=== PATIENT | male | born 1955 | race Two or more races ===

== ENCOUNTER 2024-01-31 09:54 | Inpatient (IN) | payer OTHER ==
[~2024-01-31] VITALS: Ht 170.2 cm; Wt 81.2 kg
[2024-01-31] MEDS ORDERED: TAMSULOSIN HCL0.4 MG PO (10:39)
[2024-01-31] MEDS ORDERED: FINASTERIDE5 MG PO (10:39)
[2024-01-31] MEDS ORDERED: ENALAPRIL MALEA10 MG PO (10:39)
[2024-01-31] MEDS ORDERED: CIPROFLOXACIN IN 5 % DEXTROSE 400 MG/200 ML PIGGYBAG IV STA (11:59)
[2024-01-31] MEDS ORDERED: METRONIDAZOLE/SODIUM CHLORIDE 500 MG/100 ML PIGGYBACK IV STA (12:00)
[2024-01-31] MEDS ORDERED: 0.9 % SODIUM CHLORIDE 1,000 ML IV STA (12:01)
[2024-01-31] MEDS ORDERED: CIPROFLOXACIN IN 5 % DEXTROSE 400 MG/200 ML PIGGYBAG IV ONE (12:08)
[2024-01-31] MEDS ORDERED: METRONIDAZOLE/SODIUM CHLORIDE 500 MG/100 ML PIGGYBACK IV ONE (12:08)
[2024-01-31 12:34] LABS: HEMATOCRIT 46.2 % (39.0-48.0); HEMOGLOBIN 15.6 g/dL (13-16.00); MEAN CELL VOLUME 90.5 fL (80.0-100.00); MEAN CORPUSCULAR HEMOGLOBIN 30.5 pg (27.00-32.0); MEAN CORPUSCULAR HGB CONC 33.7 g/dl (32.0-36.0); PLATELET COUNT 405 K/uL (150-450); RED CELL DISTRIBUTION WIDTH 13.5 % (11.5-14.5)
[2024-01-31 12:51] LABS: CALCIUM 9.3 mg/dL (8.5-10.1); CREATININE SERUM 1.86 mg/dL (0.70-1.30); GFR 36.42; POTASSIUM 4.52 mEq/L (3.5-5.1)
[2024-01-31 13:49] LABS: URINE APPEARANCE Clear; URINE BILIRRUBIN Negative (NEGATIVE); URINE BLOOD Negative; URINE COLOR Yellow; URINE GLUCOSE Negative (NEGATIVE); URINE KETONE Negative (NEGATIVE); URINE LEUKOCYTE Trace; URINE NITRATE Negative; URINE PROTEIN Trace (NEGATIVE); URINE UROBILINOGEN 0.2 E.U./dl
[2024-01-31 13:53] LABS: URINE BACTERIA 29.3 uL (0.0-1933); URINE EPITHELIAL CELLS 6.8 uL (0.0-38.8); URINE RBC 13.9 uL (0.0-20.8); URINE WBC 17.4 uL (0.0-23.2)
[2024-01-31 13:56] LABS: URINE CAST 1.32 uL (0.0-1.40)
[2024-01-31] MEDS ORDERED: ACETAMINOPHEN 325 MG TABLET PO PRN (19:00)
[2024-01-31] MEDS ORDERED: 0.9 % SODIUM CHLORIDE 1,000 ML IV SCH (19:00)
[2024-01-31] MEDS ORDERED: PROMETHAZINE HCL 25 MG/ML AMPUL IM PRN (19:00)
[2024-01-31] MEDS ORDERED: MEPERIDINE HCL/PF 25 MG/ML VIAL IM PRN (19:00)
[2024-01-31] MEDS ORDERED: ONDANSETRON HCL 4 MG in 0.9 % SODIUM CHLORIDE 50 ML IV PRN (19:00)
[2024-01-31] MEDS ORDERED: PIPERACILLIN/TAZOBACTAM SODIUM 3.375 GM in DEXTROSE 5 % IN WATER 100 ML IV SCH (19:10)
[2024-01-31 19:46] VITALS: BP 128/85; O2SAT 98
[2024-01-31 20:06] LABS: INR 1.44; PARTIAL THROMBOPLASTIN TIME 33.6 SECONDS (22.0-34.0)
[2024-01-31 20:08] LABS: PROTHROMBIN TIME 15.3 SECONDS (9.0-11.5)
[2024-01-31] MEDS ORDERED: PANTOPRAZOLE SODIUM 40 MG/VIAL VIAL IV SCH (21:00)
[2024-02-01 00:15] VITALS: BP 149/73; O2SAT 98
[2024-02-01 08:55] VITALS: BP 145/81; O2SAT 97
[2024-02-01] MEDS ORDERED: FINASTERIDE 5 MG TABLET PO SCH (09:00)
[2024-02-01] MEDS ORDERED: ENALAPRIL MALEATE 10 MG TABLET PO SCH (09:00)
[2024-02-01] MEDS ORDERED: TAMSULOSIN HCL 0.4 MG CAP PO SCH (09:00)
[2024-02-01] MEDS ORDERED: ACETAMINOPHEN 500 MG GEL..CAP PO PRN (09:15)
[2024-02-01] MEDS ORDERED: MAGNESIUM HYDROXIDE 30 ML BLIST.PACK PO PRN (14:30)
[2024-02-01] MEDS ORDERED: POLYETHYLENE GLYCOL 3350 17 GM BLIST.PACK PO NR (15:00)
[2024-02-01 15:35] VITALS: BP 127/80; O2SAT 96
[2024-02-02 01:06] VITALS: BP 113/68; O2SAT 97
[2024-02-02 08:32] VITALS: BP 123/69; O2SAT 97
[2024-02-02] MEDS ORDERED: POLYETHYLENE GLYCOL 3350 17 GM BLIST.PACK PO SCH (09:00)
[2024-02-02] MEDS ORDERED: PIPERACILLIN/TAZOBACTAM SODIUM 2.25 GM VIAL IV SCH (12:00)
[2024-02-02 16:29] VITALS: BP 110/68; O2SAT 96
[2024-02-02] MEDS ORDERED: LEVALBUTEROL HCL 0.63 MG/3 ML SOLUTION IH SCH (17:00)
[2024-02-03 00:09] VITALS: BP 104/71; O2SAT 98
[2024-02-03 08:00] VITALS: BP 152/82; O2SAT 98
[2024-02-03] MEDS ORDERED: fentaNYL CITRATE 50 MCG/ML AMPUL IV PUSH ONE (17:00)
[2024-02-03] MEDS ORDERED: MIDAZOLAM HCL 2 MG/2 ML VIAL IV PUSH ONE (17:00)
[2024-02-03] MEDS ORDERED: hydrALAZINE HCL 20 MG VIAL IV PRN (17:00)
[2024-02-04 00:16] VITALS: BP 145/75; O2SAT 100
[2024-02-04 08:10] VITALS: BP 122/69; O2SAT 98
[2024-02-04 15:13] LABS: CALCIUM 7.8 mg/dL (8.5-10.1); CREATININE SERUM 1.28 mg/dL (0.70-1.30); GFR 56.05; POTASSIUM 4.07 mEq/L (3.5-5.1)
[2024-02-04 16:00] VITALS: BP 149/81; O2SAT 98
[2024-02-05 00:10] VITALS: BP 125/70; O2SAT 98
[2024-02-05] MEDS ORDERED: PIPERACILLIN/TAZOBACTAM SODIUM 3.375 GM in 0.9 % SODIUM CHLORIDE 100 ML IV SCH (06:00)
[2024-02-05 07:39] LABS: HEMATOCRIT 36.5 % (39.0-48.0); HEMOGLOBIN 12.6 g/dL (13-16.00); MEAN CELL VOLUME 89.5 fL (80.0-100.00); MEAN CORPUSCULAR HEMOGLOBIN 30.8 pg (27.00-32.0); MEAN CORPUSCULAR HGB CONC 34.4 g/dl (32.0-36.0); PLATELET COUNT 305 K/uL (150-450); RED BLOOD COUNT 4.08 M/uL (4.00-6.00); RED CELL DISTRIBUTION WIDTH 13.6 % (11.5-14.5)
[2024-02-05 08:00] VITALS: BP 160/85; O2SAT 97
[2024-02-05 08:50] LABS: CREATININE SERUM 1.36 mg/dL (0.70-1.30); GFR 52.27; POTASSIUM 4.67 mEq/L (3.5-5.1)
[2024-02-05 11:35] VITALS: BP 154/89
[2024-02-05 17:00] VITALS: BP 146/91; O2SAT 100
[2024-02-05] MEDS ORDERED: TEMAZEPAM 15 MG CAPSULE PO SCH (21:00)
[2024-02-06 00:05] VITALS: BP 124/82; O2SAT 98
[2024-02-06 09:00] VITALS: BP 138/85; O2SAT 96
[2024-02-06 15:30] VITALS: BP 134/84; O2SAT 95
[2024-02-07 00:17] VITALS: BP 132/83; O2SAT 96
[2024-02-07 13:20] LABS: HEMATOCRIT 41.3 % (39.0-48.0); HEMOGLOBIN 13.8 g/dL (13-16.00); MEAN CELL VOLUME 90.4 fL (80.0-100.00); MEAN CORPUSCULAR HEMOGLOBIN 30.2 pg (27.00-32.0); MEAN CORPUSCULAR HGB CONC 33.4 g/dl (32.0-36.0); PLATELET COUNT 266 K/uL (150-450); RED BLOOD COUNT 4.57 M/uL (4.00-6.00); RED CELL DISTRIBUTION WIDTH 13.3 % (11.5-14.5)
[2024-02-07 14:40] LABS: ALBUMIN 2.2 gm/dL (3.4-5.0); BILIRUBIN TOTAL 0.53 mg/dL (0.3-1.2); CALCIUM 8.8 mg/dL (8.5-10.1); CREATININE SERUM 1.39 mg/dL (0.70-1.30); GFR 50.97; GLOBULINA 4.4 G/DL (2.4-3.5); POTASSIUM 4.58 mEq/L (3.5-5.1); TOTAL PROTEIN 6.6 gm/dL (6.4-8.2)
[2024-02-07 17:00] VITALS: BP 156/92; O2SAT 96
[2024-02-08] VITALS: BP 143/92; O2SAT 95
[2024-02-08] MEDS ORDERED: DIATRIZOATE MEGLUMINE, SODIUM 30 ML BOTTLE PO NR (08:31)
[2024-02-08 12:04] VITALS: BP 143/91; O2SAT 96
[2024-02-08 16:00] VITALS: BP 156/90; O2SAT 96
[2024-02-09 00:03] VITALS: BP 134/72; O2SAT 95
[2024-02-09 08:00] VITALS: BP 123/78; O2SAT 97
[2024-02-09 12:10] LABS: URINE APPEARANCE Clear; URINE BILIRRUBIN Negative (NEGATIVE); URINE BLOOD Negative; URINE COLOR Yellow; URINE GLUCOSE Negative (NEGATIVE); URINE KETONE Negative (NEGATIVE); URINE LEUKOCYTE Negative; URINE NITRATE Negative; URINE PROTEIN 30 (NEGATIVE)
[2024-02-09 12:13] LABS: URINE BACTERIA 7.3 uL (0.0-1933); URINE EPITHELIAL CELLS 3.7 uL (0.0-38.8); URINE RBC 12.5 uL (0.0-20.8); URINE WBC 5.2 uL (0.0-23.2)
[2024-02-09 12:14] LABS: URINE CAST 0.44 uL (0.0-1.40)
[2024-02-09 16:00] VITALS: BP 144/85; O2SAT 96
[2024-02-10 00:12] VITALS: BP 131/64; O2SAT 97
[2024-02-10 09:42] VITALS: BP 155/95; O2SAT 97
[2024-02-10] MEDS ORDERED: PIPERACILLIN/TAZOBACTAM SODIUM 3.375 GM VIAL IV ONE (11:27)
[2024-02-10 17:25] VITALS: BP 166/91; O2SAT 97
[2024-02-10 20:08] VITALS: BP 130/81; O2SAT 93
[2024-02-10] MEDS ORDERED: PANTOPRAZOLE SODIUM 40 MG TABLET.DR PO SCH (21:00)
[2024-02-11] VITALS: BP 120/80; O2SAT 99
[2024-02-11 06:59] LABS: HEMOGLOBIN 11.6 g/dL (13-16.00); MEAN CELL VOLUME 89.2 fL (80.0-100.00); MEAN CORPUSCULAR HEMOGLOBIN 30.5 pg (27.00-32.0); MEAN CORPUSCULAR HGB CONC 34.2 g/dl (32.0-36.0); PLATELET COUNT 208 K/uL (150-450); RED BLOOD COUNT 3.82 M/uL (4.00-6.00); RED CELL DISTRIBUTION WIDTH 13.3 % (11.5-14.5)
[2024-02-11 08:32] LABS: BILIRUBIN TOTAL 0.61 mg/dL (0.3-1.2); CALCIUM 8.4 mg/dL (8.5-10.1); CREATININE SERUM 1.37 mg/dL (0.70-1.30); GFR 51.83; GLOBULINA 3.9 G/DL (2.4-3.5); POTASSIUM 4.37 mEq/L (3.5-5.1); TOTAL PROTEIN 5.9 gm/dL (6.4-8.2)
[2024-02-11] MEDS ORDERED: GABAPENTIN 100 MG CAPSULE PO NR (12:00)
[2024-02-11 16:00] VITALS: BP 158/86; O2SAT 98
[2024-02-11] MEDS ORDERED: GABAPENTIN 100 MG CAPSULE PO SCH (17:00)
[2024-02-12 00:10] VITALS: BP 119/76; O2SAT 97
[2024-02-12 08:00] VITALS: BP 166/88; O2SAT 99
[2024-02-12 16:00] VITALS: BP 148/85; O2SAT 97
[2024-02-13 01:41] VITALS: BP 112/73; O2SAT 96
[2024-02-13 09:37] VITALS: BP 171/91; O2SAT 97
[2024-02-13 16:15] VITALS: BP 156/86; O2SAT 98
[2024-02-14] VITALS: BP 127/81; O2SAT 95
[2024-02-14 06:52] LABS: HEMATOCRIT 32.6 % (39.0-48.0); HEMOGLOBIN 11.1 g/dL (13-16.00); MEAN CORPUSCULAR HEMOGLOBIN 30.4 pg (27.00-32.0); MEAN CORPUSCULAR HGB CONC 34.1 g/dl (32.0-36.0); PLATELET COUNT 194 K/uL (150-450); RED BLOOD COUNT 3.66 M/uL (4.00-6.00); RED CELL DISTRIBUTION WIDTH 13.8 % (11.5-14.5)
[2024-02-14 07:34] LABS: CALCIUM 8.3 mg/dL (8.5-10.1); CREATININE SERUM 1.27 mg/dL (0.70-1.30); GFR 56.56; POTASSIUM 4.14 mEq/L (3.5-5.1)
[2024-02-14 08:00] VITALS: BP 156/94; O2SAT 98
[2024-02-14 16:14] VITALS: BP 170/71; O2SAT 96
[2024-02-14] MEDS ORDERED: PIPERACILLIN/TAZOBACTAM SODIUM 4.5 GM VIAL IV SCH (18:00)
[2024-02-15 00:20] VITALS: BP 131/80; O2SAT 97
[2024-02-15 01:21] VITALS: BP 131/80; O2SAT 97
[2024-02-15] MEDS ORDERED: DIATRIZOATE MEGLUMINE, SODIUM 30 ML BOTTLE ONE (01:41)
[2024-02-15] MEDS ORDERED: DIATRIZOATE MEGLUMINE, SODIUM 30 ML BOTTLE PO NR (05:00)
[2024-02-15 08:00] VITALS: BP 142/86; O2SAT 100
[2024-02-15 16:00] VITALS: BP 154/88; O2SAT 95
[2024-02-16] VITALS: BP 112/75; O2SAT 97
[2024-02-16 08:00] VITALS: BP 135/82; O2SAT 96
[2024-02-16 16:00] VITALS: BP 146/84; O2SAT 100
[2024-02-16] MEDS ORDERED: GABAPENTIN 300 MG CAPSULE PO SCH (20:00)
[2024-02-18 08:00] VITALS: BP 150/74; O2SAT 97
[2024-02-18 16:00] VITALS: BP 148/75; O2SAT 97
[2024-02-19] VITALS: BP 136/74; O2SAT 96
[2024-02-19 09:00] VITALS: BP 140/86; O2SAT 95
[2024-02-19 13:35] LABS: HEMATOCRIT 33.8 % (39.0-48.0); HEMOGLOBIN 11.6 g/dL (13-16.00); MEAN CELL VOLUME 88.8 fL (80.0-100.00); MEAN CORPUSCULAR HEMOGLOBIN 30.4 pg (27.00-32.0); MEAN CORPUSCULAR HGB CONC 34.2 g/dl (32.0-36.0); PLATELET COUNT 242 K/uL (150-450); RED BLOOD COUNT 3.81 M/uL (4.00-6.00); RED CELL DISTRIBUTION WIDTH 14.1 % (11.5-14.5)
[2024-02-19 14:00] LABS: BILIRUBIN TOTAL 0.58 mg/dL (0.3-1.2); CALCIUM 8.3 mg/dL (8.5-10.1); CREATININE SERUM 1.24 mg/dL (0.70-1.30); GFR 58.15; GLOBULINA 4.1 G/DL (2.4-3.5); POTASSIUM 3.96 mEq/L (3.5-5.1); TOTAL PROTEIN 6.1 gm/dL (6.4-8.2)
[2024-02-19 16:00] VITALS: BP 157/94; O2SAT 98
[2024-02-20 00:11] VITALS: BP 137/84; O2SAT 97
[2024-02-20 07:47] VITALS: BP 145/88; O2SAT 95
[2024-02-20 16:00] VITALS: BP 160/87; O2SAT 98
[2024-02-20 23:41] VITALS: BP 133/66; O2SAT 96
[2024-02-21 06:18] LABS: HEMATOCRIT 33.9 % (39.0-48.0); HEMOGLOBIN 11.6 g/dL (13-16.00); MEAN CELL VOLUME 87.2 fL (80.0-100.00); MEAN CORPUSCULAR HEMOGLOBIN 29.8 pg (27.00-32.0); MEAN CORPUSCULAR HGB CONC 34.1 g/dl (32.0-36.0); PLATELET COUNT 244 K/uL (150-450); RED BLOOD COUNT 3.89 M/uL (4.00-6.00); RED CELL DISTRIBUTION WIDTH 13.8 % (11.5-14.5)
[2024-02-21 06:47] LABS: ALBUMIN 2.1 gm/dL (3.4-5.0); BILIRUBIN TOTAL 0.49 mg/dL (0.3-1.2); CALCIUM 8.9 mg/dL (8.5-10.1); CREATININE SERUM 1.25 mg/dL (0.70-1.30); GFR 57.61; GLOBULINA 4.2 G/DL (2.4-3.5); POTASSIUM 4.23 mEq/L (3.5-5.1); TOTAL PROTEIN 6.3 gm/dL (6.4-8.2)
[2024-02-21 09:07] VITALS: BP 159/91; O2SAT 98
[2024-02-21 16:00] VITALS: BP 148/88; O2SAT 99
[2024-02-22] VITALS: BP 118/78; O2SAT 95
[2024-02-22 08:18] VITALS: BP 131/85; O2SAT 95
[2024-02-22 16:08] VITALS: BP 164/90; O2SAT 98
[2024-02-23] VITALS: BP 131/73; O2SAT 96
[2024-02-23 08:00] VITALS: BP 144/80; O2SAT 95
[2024-02-23 16:05] VITALS: BP 138/86; O2SAT 95
[2024-02-24] VITALS: BP 131/79; O2SAT 95
[2024-02-24 08:40] VITALS: BP 150/90; O2SAT 95
[2024-02-24] MEDS ORDERED: DIATRIZOATE MEGLUMINE, SODIUM 30 ML BOTTLE PO ONE (08:45)
[2024-02-24 16:35] VITALS: BP 161/90; O2SAT 97
[2024-02-25 00:37] VITALS: BP 136/84; O2SAT 96
[2024-02-25] MEDS ORDERED: DIATRIZOATE MEGLUMINE, SODIUM 30 ML BOTTLE PO SCH (06:00)
[2024-02-25 08:16] VITALS: BP 178/97; O2SAT 98
[2024-02-25 16:00] VITALS: BP 162/90; O2SAT 98
[2024-02-25] MEDS ORDERED: MORPHINE SULFATE 4 MG/ML VIAL IV PRN (22:00)
[2024-02-25] MEDS ORDERED: MORPHINE SULFATE 4 MG/ML CARTRIDGE IV PRN (22:00)
[2024-02-25] MEDS ORDERED: MIDAZOLAM HCL 2 MG/2 ML VIAL IV PUSH ONE (22:45)
[2024-02-25] MEDS ORDERED: fentaNYL CITRATE 50 MCG/ML AMPUL IV PUSH ONE (22:45)
[2024-02-26] VITALS: BP 130/83; O2SAT 96
[2024-02-26 08:48] VITALS: BP 135/88; O2SAT 95
[2024-02-26] MEDS ORDERED: DIPHENHYDRAMINE HCL 50 MG/ML VIAL 1ML IV STA (12:00)
[2024-02-26 17:12] VITALS: BP 165/87; O2SAT 96
[2024-02-27] VITALS: BP 125/79; O2SAT 95
[2024-02-27 07:50] VITALS: BP 163/93; O2SAT 98
[2024-02-27 16:08] VITALS: BP 180/90; O2SAT 100
[2024-02-28 00:48] VITALS: BP 169/93; O2SAT 98
[2024-02-28 02:00] VITALS: BP 129/80; O2SAT 95
[2024-02-28 06:58] LABS: HEMATOCRIT 35.1 % (39.0-48.0); HEMOGLOBIN 11.9 g/dL (13-16.00); MEAN CELL VOLUME 88.6 fL (80.0-100.00); MEAN CORPUSCULAR HEMOGLOBIN 29.9 pg (27.00-32.0); MEAN CORPUSCULAR HGB CONC 33.8 g/dl (32.0-36.0); PLATELET COUNT 252 K/uL (150-450); RED BLOOD COUNT 3.97 M/uL (4.00-6.00); RED CELL DISTRIBUTION WIDTH 14.4 % (11.5-14.5)
[2024-02-28 07:42] LABS: ALBUMIN 2.3 gm/dL (3.4-5.0); BILIRUBIN TOTAL 0.56 mg/dL (0.3-1.2); CALCIUM 8.7 mg/dL (8.5-10.1); CREATININE SERUM 1.04 mg/dL (0.70-1.30); GFR 71.23; GLOBULINA 3.9 G/DL (2.4-3.5); POTASSIUM 3.71 mEq/L (3.5-5.1); TOTAL PROTEIN 6.2 gm/dL (6.4-8.2)
[2024-02-28 08:30] VITALS: BP 173/98; O2SAT 98
[2024-02-28] MEDS ORDERED: CLONAZEPAM 0.5 MG TABLET PO SCH (13:58)
[2024-02-28 16:17] VITALS: BP 178/99; O2SAT 99
[2024-02-28] MEDS ORDERED: TEMAZEPAM 15 MG CAPSULE PO SCH ×2 (21:00)
[2024-02-29 00:33] VITALS: BP 146/86; O2SAT 98
[2024-02-29 08:48] VITALS: BP 157/90; O2SAT 99
[2024-02-29 15:26] LABS: HEMATOCRIT 36.3 % (39.0-48.0); HEMOGLOBIN 12.1 g/dL (13-16.00); MEAN CELL VOLUME 89.5 fL (80.0-100.00); MEAN CORPUSCULAR HEMOGLOBIN 29.8 pg (27.00-32.0); MEAN CORPUSCULAR HGB CONC 33.3 g/dl (32.0-36.0); PLATELET COUNT 249 K/uL (150-450); RED BLOOD COUNT 4.06 M/uL (4.00-6.00)
[2024-02-29 16:00] VITALS: BP 166/95; O2SAT 100
[2024-02-29 16:10] LABS: ALBUMIN 2.6 gm/dL (3.4-5.0); BILIRUBIN TOTAL 0.51 mg/dL (0.3-1.2); CALCIUM 9.1 mg/dL (8.5-10.1); CREATININE SERUM 1.31 mg/dL (0.70-1.30); GFR 54.58; GLOBULINA 4.5 G/DL (2.4-3.5); POTASSIUM 4.33 mEq/L (3.5-5.1); TOTAL PROTEIN 7.1 gm/dL (6.4-8.2)
[2024-02-29 16:26] LABS: URINE APPEARANCE Cloudy; URINE BACTERIA 123.5 uL (0.0-1933); URINE BILIRRUBIN Negative (NEGATIVE); URINE BLOOD Negative; URINE COLOR Yellow; URINE EPITHELIAL CELLS 5.8 uL (0.0-38.8); URINE GLUCOSE Negative (NEGATIVE); URINE KETONE Negative (NEGATIVE); URINE LEUKOCYTE Moderate; URINE NITRATE Negative; URINE PROTEIN Negative (NEGATIVE); URINE RBC 7.9 uL (0.0-20.8); URINE WBC 305.9 uL (0.0-23.2)
[2024-02-29 16:26] LABS: PROSTATIC SPECIFIC ANTIGEN 14.9 NG/ML (0.010-4.00)
[2024-02-29 16:32] LABS: URINE CAST 1.17 uL (0.0-1.40)
[2024-02-29 17:29] VITALS: BP 160/89; O2SAT 99
[2024-02-29 20:00] VITALS: BP 148/86
[2024-02-29] MEDS ORDERED: TEMAZEPAM 15 MG CAPSULE PO SCH (21:00)
[2024-03-01 00:14] VITALS: BP 136/70; O2SAT 98
[2024-03-01 10:23] VITALS: BP 131/68; BP 180/100; O2SAT 100
[2024-03-01 16:00] VITALS: BP 185/90; O2SAT 100
[2024-03-01 18:18] VITALS: BP 138/89
[2024-03-02 01:08] VITALS: BP 130/67; O2SAT 98
[2024-03-02] MEDS ORDERED: DIATRIZOATE MEGLUMINE, SODIUM 30 ML BOTTLE PO SCH (05:00)
[2024-03-02 08:06] VITALS: BP 163/83; O2SAT 99
[2024-03-02 16:47] VITALS: BP 167/84; O2SAT 99
[2024-03-03] VITALS: BP 97/54; O2SAT 98
[2024-03-03 08:35] VITALS: BP 164/83; O2SAT 97
== END 2024-03-03 14:08 | disposition home or self-care (01) | DRG 392 ==
LOC: ER 09:56 → SURG 19:17 → SURH 02-11 11:23
PROVIDERS: General Practice; Internal Medicine; Internal Medicine Infectious Disease; Student in an Organized Health Care Education/Training Program; ADMIT Internal Medicine; ATTEND Internal Medicine
PROC: BW21ZZZ Computerized Tomography (CT Scan) of Abdomen and Pelvis (ICD-10-PCS; 2024-01-31)
PROC: 0J9830Z Drainage of Abdomen Subcutaneous Tissue and Fascia with Drainage Device, Percutaneous Approach (ICD-10-PCS; principal; 2024-02-03)
PROC: BW21YZZ Computerized Tomography (CT Scan) of Abdomen and Pelvis using Other Contrast (ICD-10-PCS; 2024-02-08)
PROC: BW21YZZ Computerized Tomography (CT Scan) of Abdomen and Pelvis using Other Contrast (ICD-10-PCS; 2024-02-15)
PROC: BW21YZZ Computerized Tomography (CT Scan) of Abdomen and Pelvis using Other Contrast (ICD-10-PCS; 2024-02-25)
PROC: 02HV33Z Insertion of Infusion Device into Superior Vena Cava, Percutaneous Approach (ICD-10-PCS; 2024-02-26)
PROC: BW21YZZ Computerized Tomography (CT Scan) of Abdomen and Pelvis using Other Contrast (ICD-10-PCS; 2024-03-02)
DX: K57.80 Diverticulitis of intestine, part unspecified, with perforation and abscess without bleeding (principal); N18.9 Chronic kidney disease, unspecified